=== PATIENT | male | born 1960 | race Caucasian/White ===

== ENCOUNTER 2020-04-20 07:30 | Outpatient (RCR) | payer OTHER, SELFPAY ==
[2020-02-29 12:31] VITALS: BP_SYST 160; BP_SYST 175
--- NOTE | 2020-02-29 13:41 | PTOPEVAL ---
Thank you for referring Ron Graff to [facility].? The patient is scheduled to be seen for therapy? 2 x/week for 8 weeks. Please review, sign, date and return this plan of care VERONICA. I agree with and certify that the following plan of care is medically necessary. Referring Physician Date Referring Provider: Gómez Owens *PT Outpatient Evaluation Start: 02/29/20 12:31 Freq: Status: Active Protocol: Document 02/29/20 12:31 LEROY (Rec: 02/29/20 13:26 CAP [id number]) Therapy Assessment Status Assessment Status Assessment Status Evaluation Outpatient Past Medical History Past Medical History Source of Past Medical History Patient Neurological History Hx Neurological Disorders No Significant History Cardiovascular History Hx Cardiac Disorders No Significant History Respiratory History Hx Respiratory Disorders No Significant History Gastrointestinal History Hx Gastrointestinal Disorders No Significant History Genitourinary History Hx Genitourinary Disorders No Significant History Musculoskeletal History Hx Fractures Yes: right wrist- 11 yrs, left wrist yrs 9 yrs ago Hx Other Musculoskeletal Disorders Yes: bob shoulder pain Endocrine History Hx Endocrine Disorders No Significant History HEENT History Hx Other HEENT Disorders Yes: hearing aids Evaluation Information Problem Diagnosis bob shoulder pain Onset unknown Cause 3 months ago Additional Evaluation Detail 10 yrs broke right wrist 10 yrs ago therapy for right UE. Subjective Information Reports the right shoulder has Query Text:As Reported By Patient/ been ache for the past few Family months. States his left arm is now also painful He is limited with reaching motions. Any activity that requires reaching is painful and difficulty. He has trouble sleeping due to pain. He is unable to marck sleeping on his back. he reports increased pain with leaning forward with WB on his arms. He does not work, performs work on his house. He did go to the gym 1 yr ago for resistance training. Diagnostic Tests X-Rays For This Problem No Previous Treatments Previous Treatments For This Problem no Pain Assessment Timing of Pain Assessment Timing of Pain Assessment As
--- NOTE | 2020-03-30 11:33 | PTOPEVAL ---
Thank you for referring Ron Graff to [facility].? Pt has received 9 therapy visits to address his shoulder limitations. The patient is scheduled to be seen for therapy? 2 x/week for 3 weeks. Please review, sign, date and return this plan of care VERONICA. I agree with and certify that the following plan of care is medically necessary. Referring Physician Date Referring Provider: Gómez Owens *PT Outpatient Evaluation Start: 02/29/20 12:31 Freq: Status: Active Protocol: Document 03/30/20 09:02 LEROY (Rec: 03/30/20 09:50 LEROY [id number]) Therapy Assessment Status Assessment Status Assessment Status Re-evaluation Evaluation Information Problem Diagnosis bob shoulder pain Onset unknown Cause 3 months ago Additional Evaluation Detail 10 yrs broke right wrist 10 yrs ago therapy for right UE. Reports the right shoulder has been ache for the past few months. States his left arm is now also painful. Subjective Information He cont to report pain in his Query Text:As Reported By Patient/ shoulders with sidelying Family sleeping. He is trying to sleep on his back with slight improvement. He continues to have limited ability to perform reaching motions. Reaching behind and overhead are painful. he has pain leaning forward on his elbows or hands causing shoulder pain. Pain Assessment Timing of Pain Assessment Timing of Pain Assessment Re-assessment Pain Scale Pain Scale Used Numeric (1 - 10) Self Report Pain Assessment Left Shoulder(s) Reported Pain Level 2 Pain Description Aching,Dull,Sharp Pain Frequency Chronic,Continuous Lowest Pain Intensity 2 Greatest Pain Intensity 6 Pain Aggravating Factors Other Pain Aggravating Factors Other Pain Aggravating Factors reaching Right Shoulder(s) Reported Pain Level 1 Pain Description Aching,Dull Pain Frequency Acute,Continuous Lowest Pain Intensity 1 Greatest Pain Intensity 5 Pain Aggravating Factors Other Pain Aggravating Factors Other Pain Aggravating Factors reaching Pain Score Pain Score 2,1: Self Report Interventions Used Interventions Used By Clinicians Exercise Upper Extremity Range of Mo
--- NOTE | 2020-04-20 08:15 | PTOPEVAL ---
Thank you for referring Ron Graff to [facility].? Pt has received 15 therapy visits to address shoulder impairments. He has been instructed in a HEP at this time. He has partially achieved his therapy goals. He has reached maximal potential with skilled therapy services. SO skilled therapy with pt to continue with his home program. Please review, sign, date and return this discharge VERONICA. I agree with and certify that the following plan of care is medically necessary. Referring Physician Date Referring Provider: Gómez Owens Physical Therapy Discharge Note Problem Diagnosis bob shoulder pain Onset unknown Cause 3 months ago Additional Evaluation Detail 10 yrs broke right wrist 10 yrs ago therapy for right UE. Reports the right shoulder has been ache for the past few months. States his left arm is now also painful. Subjective Information He reports the ache in his Query Text:As Reported By Patient/ shoulders has improved. He is Family able to sleep better on each side with decreased pain. He does feel like he is better. His right shoulder has improved more than the left side. He is performing his HEP without problems. He is taking a hot bath/shower for his shoulder pain. Pain Assessment Left Shoulder(s) Reported Pain Level 0 Pain Description Aching Pain Frequency Intermittent Lowest Pain Intensity 0 Greatest Pain Intensity 2 Pain Aggravating Factors Exercise/Activity Right Shoulder(s) Reported Pain Level 0 Pain Description Aching Pain Frequency Intermittent Lowest Pain Intensity 0 Greatest Pain Intensity 1 Upper Extremity Range of Motion Right Scapular: Retraction Hypomobile Scapular: Protraction Hypomobile Scapular Downward Rotation Hypomobile Shoulder Flexion - Active 165 Shoulder Extension - Active 50 Shoulder Abduction - Active 160 Shoulder Medial Rotation - Active 73 Shoulder Medial Rotation - Active T8 Query Text:Reach Behind the Back Shoulder Lateral Rotation - Active 65 Shoulder Lateral Rotation - Active C7 Query Text:Reach Behind the Head Scapular/Shoulder Range of Motion Pain Limitations Scapular/Shoulder Range of Motion poor inf Gh glide and Comments scapulothora
== END 2020-04-20 14:24 | disposition home or self-care (01) ==
LOC: ANHPT 07:30
DX: M25.519 Pain in unspecified shoulder (principal)
CPT/HCPCS: 97035; 97110; 97112; 97140; 97162

== ENCOUNTER 2020-06-24 17:38 | Emergency (ER) | payer OTHER, SELFPAY ==
--- NOTE | ~2020-06-24 | XR_ITS ---
XR finger 1st LT min 2V 06/24/2020 18:20 INDICATION: Left first finger pain PROCEDURE: 3 views left first finger COMPARISON: No prior studies for comparison. FINDINGS: Fracture, dislocation or subluxation is not identified. 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 The soft tissues appear within normal limits. No foreign bodies are identified. IMPRESSION: 1: NO ACUTE BONE OR JOINT ABNORMALITY IDENTIFIED. Reviewed, dictated and finalized at location A.
[2020-06-24 17:44] VITALS: BP 125/64; PULSE 61; RESP 15; TEMP 36.2; O2SAT 100
[2020-06-24] MEDS: TETANUS,DIPHTHERIA,AC PERTUSSIS ADULT (0.5 ML) BOOSTRIX IM (18:46)
--- NOTE | 2020-06-24 18:49 | ED.WOUNDLAC ---
HPI - Wound/Laceration General Chief Complaint: Wound/Laceration Stated Complaint: Cut Finger Nail Off Time Seen by Provider: 06/24/20 17:48 History of Present Illness HPI narrative: Patient is a 59-year-old male who presents ER with left thumbnail injury. Patient was working with drywall when he cut himself with a utility knife. No numbness or tingling. He did have a lot of bleeding. He has dressed it and bandages. No missing skin reported by patient. She maintains full range of motion of the finger. Unknown last tetanus immunization. Related Data Home Medications Medication Instructions Recorded Confirmed trazodone 06/24/20 Allergies Allergy/AdvReac Type Severity Reaction Status Date / Time No Known Allergies Allergy Verified 06/24/20 18:38 Review of Systems Musculoskeletal: Musculoskeletal: Reports no additional musculoskeletal complaints, Denies arthralgias, Denies joint swelling and Denies muscle cramps Integumentary/Breasts: Skin/Breast: Reports system reviewed and no additional complaints, except as docu Comments: Laceration left thumb and nail. Neurologic: Denies focal weakness and Denies numbness PMFSH Past Medical History Medical History (Updated 06/24/20 @ 18:54 by Roger Murillo MD) Healthy adult male Surgical History Surgical History (Updated 06/24/20 @ 18:51 by Roger Murillo MD) No pertinent past surgical history Exam Narrative: Exam Narrative: GENERAL: Well-appearing, well-nourished, and in no acute distress. HEAD: Normocephalic, atraumatic. EXTREMITIES: Focused exam left hand reveals a small laceration through the ulnar aspect of the distal thumb at the nail. Range of motion of the affected digit with normal sensation. Normal radial pulses and brisk capillary refill. SKIN: Warm, dry, no rash. NEURO: No focal deficits. Alert and oriented x3. PSYCH: Mildly anxious, normal thought content. Course Course Emergency Course: Wound cleaned and dressed and placed in AlumaFoam splint for protection. No need to suture. No bony involvement. Tetanus updated. Vital Signs Vital signs: Vital Signs Temperature 97.1 F L 06/24/20 17:44 Pulse Rate 61 06/24/20 17:44 Respiratory Rate 15 06/24/20 17:44 Blood Pressure 125/64 04/24/21 17:44 Pulse Oximetry 100 04/24/21 17:44 Temperature 97.1 F L 06/24/20 17:44 Pulse Rate 61 06/24/20 17:44 Respiratory Rate 15 06/24/20 17:44 Blood Pressure 125/64 06/24/20 17:44 Pulse Oximetry 100 06/24/20 17:44 MDM - Wound/Laceration Imaging Data Radiologist's impression: ITS Impressions Finger X-Ray 06/24/20 18:21 IMPRESSION: 1: NO ACUTE BONE OR JOINT ABNORMALITY IDENTIFIED. Discharge Plan Discharge Clinical Impression: Laceration of thumb with damage to nail Patient Disposition: Home, Self-Care Condition: Stable Instructions: Finger Laceration (ED) Additional Instructions: Your wound should heal well. Your tetanus shot was updated. Return to the ER if your finger is red and hot and swollen, you have pus draining from your wound, you have fever over 100.4 ?F, or you have other concerns. Take Tylenol and ibuprofen as needed for pain. Prescriptions: No Action trazodone 50 mg tablet RF: 0 Follow-up/Referrals: Vitaliy Cooper MD [Primary Care Provider] - 1 Week
[2020-06-24 19:03] VITALS: BP 131/59; PULSE 66; RESP 16; TEMP 36.8; O2SAT 98
== END 2020-06-24 19:03 | disposition home or self-care (01) ==
PROVIDERS: Emergency Provider Emergency Medicine; PCP Emergency Medicine
DX: S61.112A Laceration without foreign body of left thumb with damage to nail, initial encounter (principal); Z23 Encounter for immunization; W27.0XXA Contact with workbench tool, initial encounter
CPT/HCPCS: 29130; 73140; 90471; 90715; 99283

== ENCOUNTER 2020-10-09 10:48 | Day surgery (SDC) | payer OTHER, SELFPAY ==
[2020-10-09] VITALS (11 sets, daily range): BP systolic 119–147; BP diastolic 68–87; PULSE 63–85; RESP 10–18; TEMP 28.8–37.2; O2SAT 96–100
--- NOTE | ~2020-10-09 | CT_ITS ---
EXAMINATION: CT abdomen pelvis w con INDICATION: Right lower quadrant pain TECHNIQUE: Computed tomographic images of the abdomen and pelvis were obtained after the administrati on of 100 cc of Omnipaque 350 intravenous contrast. The dose-length product (DLP) was 360.67 mGy-cm. Automated exposure control and iterative reconstruction technique were employed. COMPARISON: None available FINDINGS: The lung bases are clear. The heart size is normal. The liver, spleen, pancreas, gallbladde r, and adrenal glands are normal. The kidneys are unremarkable. No pathologically enlarged abdominal or pelvic lymph nodes are identified. There is no free intraperitoneal gas or evidence of bowel obstr uction. The dilated appendix measures up to 10 mm. There is edematous stranding of the periappendicea l fat. No periappendiceal abscess or perforation are identified. There is mild lumbar spondylosis. A small fat-containing umbilical hernia is noted. IMPRESSION: 1. Acute appendicitis, uncomplicated. This finding was discussed with Dr. Roger Murillo MD at 12 50 hours on 10/09/2020. Reviewed, dictated and finalized at location B. IMPRESSION: 1. Acute appendicitis, uncomplicated. This finding was discussed with Dr. Kaushik Murillo MD at 1250 hours on 10/09/2020.
[2020-10-09 11:49] LABS: Basophils Absolute Auto 0.1 K/mm3 (0.0-0.1); Basophils Percent Auto 0.5 % (0.2-1.2); Eosinophils Absolute Auto 0.1 K/mm3 (0-0.3); Eosinophils Percent Auto 0.7 % (0-4.4); Hematocrit 40.2 % (42.0-52.0); Hemoglobin 13.1 g/dL (14.0-18.0); Immature Granulocyte Absolute 0.04 K/mm3 (0.00-0.031); Immature Granulocyte Percent A 0.3 % (0-0.5); Lymphocytes Absolute Auto 1.91 K/mm3 (0.9-3.2); Lymphocytes Percent Auto 14.9 % (18.3-44.2); Mean Corpuscular HGB Conc 32.6 g/dl (32-36); Mean Corpuscular Hemoglobin 29.4 pg (26-34); Mean Corpuscular Volume 90.3 fl (80-100); Mean Platelet Volume 10.2 fl (7.4-10.4); Monocytes Absolute Auto 0.7 K/mm3 (0.1-0.6); Monocytes Percent Auto 5.8 % (2.6-8.5); Neutrophils Absolute Auto 9.9 K/mm3 (1.3-6.7); Neutrophils Percent Auto 77.8 % (45.5-73.1); Platelet Count Result 266 k/mm3 (150-375); Red Blood Count 4.45 M/mm3 (4.6-6.20); Red Cell Distribution Width 12.4 % (11.5-14.5); White Blood Count 12.8 K/mm3 (4.5-10.0)
[2020-10-09 12:00] LABS: Alanine Aminotransferase 18 U/L (4-50); Albumin Level 4.8 g/dL (3.5-5.1); Alkaline Phosphatase 56 U/L (38-126); Anion Gap 10 mmol/L (8-16); Aspartate Amino Transferase 28 U/L (17-59); Blood Urea Nitrogen 11 mg/dL (9-20); Calcium 10.1 mg/dL (8.4-10.2); Carbon Dioxide 25 mmol/L (22-30); Chloride 104 mmol/L (98-107); Estimated CRCL calculation 97 ml/min; Estimated Glomerular Filt Rate > 60; Glucose 130 mg/dL (65-110); Lipase 60 U/L (23-300); Potassium 4.2 mmol/L (3.4-5.0); Sodium 139 mmol/L (137-145)
[2020-10-09 12:00] LABS: Add Urine Microscopic? YES; Appearance Urine Clear (Clear); Bacteria Urine Trace /hpf; Bilirubin Urine Negative (Negative); Blood Urine 1+ (Negative); Color Urine Yellow (Yellow); Glucose Urine UA Negative (Negative); Ketones Urine Negative (Negative); Leukocyte Esterase Ur Negative LEU/UL (Negative); Mucus Urine Heavy /lpf; Nitrate Urine Negative (Negative); Protein Urine 1+ mg/dL (Negative); Specific Grav Ur 1.017 (1.001-1.035); Urobilinogen Urine Negative mg/dL (<2.0); WBC Urine 0-3 /hpf
[2020-10-09] MEDS: MORPHINE SULFATE (*CRX) 4 MG/ML INJ IV PUSH (12:02)
--- NOTE | 2020-10-09 13:21 | ED.ABDPAIN ---
HPI - Abdominal Pain General Chief Complaint: Abdominal Pain Stated Complaint: abd pain Time Seen by Provider: 10/09/20 11:47 History of Present Illness HPI narrative: Patient is a 59-year-old male who presents ER with right lower quadrant abdominal pain. Reports yesterday he had periumbilical pain. It is since radiated to his right lower quadrant. Its worse with movement. No diarrhea/nausea/vomiting/fever/chills. No alleviating factors. Related Data Home Medications Medication Instructions Recorded Confirmed trazodone 50 mg PO HS 06/24/20 10/09/20 Allergies Allergy/AdvReac Type Severity Reaction Status Date / Time No Known Allergies Allergy Verified 10/09/20 15:36 Review of Systems Review of Systems: All systems reviewed & are unremarkable except as noted in HPI and below Constitutional: Constitutional: Denies chills, Denies fever(s) and Denies weakness ENT: Denies nasal congestion and Denies sore throat Gastrointestinal: Gastrointestinal: Reports abdominal pain, Denies diarrhea, Denies nausea and Denies vomiting Genitourinary: Genitourinary: Denies dysuria, Denies testicular pain and Denies urinary frequency PMFSH Past Medical History Medical History Anxiety Healthy adult male Surgical History Surgical History History of surgery on right wrist Family History Family History Mother Diabetes mellitus Sibling Diabetes mellitus Social History Social History Social History: Patient lies at home with his . He wishes to be a full code. 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 HEAD: Normocephalic, atraumatic. ENT: Mucous membranes moist. CHEST: Clear to auscultation. No respiratory distress. HEART: Regular rate and rhythm. Normal peripheral pulses. ABDOMEN: Soft, tender palpation right lower quadrant with guarding, nondistended. EXTREMITIES: Normal range of motion. No edema. SKIN: Warm, dry, no rash. NEURO: Alert and oriented x3. PSYCH: Normal mood and affect. Course Course Emergency Course: Zosyn ordered. Dr. Fitzgerald contacted, will send his PA down to evaluated patient. Vital Signs Vital signs: Vital Signs Temperature 83.9 F L 10/09/20 11:25 Pulse Rate 85 10/09/20 11:25 Respiratory Rate 16 10/09/20 11:25 Blood Pressure 147/71 H 10/09/20 11:25 Pulse Oximetry 99 10/09/20 11:25 Temperature 98.9 F 10/09/20 15:00 Pulse Rate 63 10/09/20 15:00 Respiratory Rate 16 10/09/20 15:00 Blood Pressure 124/83 10/09/20 15:00 Pulse Oximetry 100 10/09/20 15:00 MDM - Abdominal Pain Lab Data Result diagrams: 10/09/20 11:34 10/09/20 11:34 Labs: Lab Results 10/09/20 10/09/20 10/09/20 Range/Units 11:34 11:34 11:46 WBC 12.8 H (4.5-10.0) K/mm3 RBC 4.45 L (4.6-6.20) M/mm3 Hgb 13.1 L (14.0-18.0) g/dL Hct 40.2 L (42.0-52.0) % MCV 90.3 (80-100) fl MCH 29.4 (26-34) pg MCHC 32.6 (32-36) g/dl RDW 12.4 (11.5-14.5) % Plt Count 266 (150-375) k/mm3 MPV 10.2 (7.4-10.4) fl Immature Gran % (Auto) 0.3 (0-0.5) % Neut % (Auto) 77.8 H (45.5-73.1) % Lymph % (Auto) 14.9 L (18.3-44.2) % [place] % (Auto) 5.8 (2.6-8.5) % Eos % (Auto) 0.7 (0-4.4) % Baso % (Auto) 0.5 (0.2-1.2) % Lymph # (Auto) 1.91 (0.9
--- NOTE | 2020-10-09 14:18 | PM.IMHP ---
H&P: HPI History of Present Illness Date/Time: 10/09/20 14:18 Chief Complaint: RLQ Abdominal pain Narrative: This is a 59-year-old male who is otherwise healthy, who presented to the ER with complaints of abdominal pain. He reports an onset of generalized abdominal pain 2 nights ago. Yesterday, this pain continued to worsen and localized to the RLQ. Reports chills last night, but no reported fever. With the persistent pain, he came to the ER for evaluation. CT scan of the abdomen and pelvis showed acute uncomplicated appendicitis. Labs revealed mild leukocytosis. Our service was contacted by the ED provider. The patient is now seen in the ER. He reports still having some mild RLQ abdominal pain, but this improved after IV Morphine. No other complaints at this time. No previous abdominal surgeries. Review of Systems Review of Systems: All systems reviewed & are unremarkable except as noted in HPI and below Constitutional: Constitutional: Reports as per HPI, Reports chills, Denies fatigue and Denies fever(s) ENT: Reports system reviewed and no additional complaints, except as documented and Reports Normal hearing present Cardiovascular: Cardiovascular: Reports no additional cardiovascular complaints, Denies chest pain and Denies leg edema Respiratory: Respiratory: Reports no additional respiratory complaints, Denies cough and Denies dyspnea Gastrointestinal: Gastrointestinal: Reports as per HPI, Reports no additional gastrointestinal complaints and Reports abdominal pain Genitourinary: Genitourinary: Denies hematuria and Denies dysuria Musculoskeletal: Musculoskeletal: Denies abnormal gait and Denies joint swelling Neurologic: Reports system reviewed and no additional complaints, except as documented, Denies focal weakness, Denies numbness and Denies tingling PMFSH Past Medical History Medical History Healthy adult male Surgical History Surgical History History of surgery on right wrist Family History Family History Mother Diabetes mellitus Sibling Diabetes mellitus Social History Social History Social History: Patient lies at home with his . He wishes to be a full code. 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 Gender identity (if verbalized by the patient): Male Sexual Orientation (if Verbalized by the Patient): Straight or Heterosexual Meds Home Medications and Allergies Home Medications Medication Instructions Recorded Confirmed Type trazodone 06/24/20 History Allergies Allergy/AdvReac Type Severity Reaction Status Date / Time No Known Allergies Allergy Verified 10/09/20 12:01 Vital Signs Vital Signs - 24 hr 10/09/20 11:25 10/09/20 11:59 10/09/20 13:59 Temperature 83.9 F L 98.1 F Pulse Rate 85 79 76 Respiratory Rate 16 18 18 Blood Pressure 147/71 H 133/86 119/76 Pulse Oximetry 99 100 99 Exam Const: General: no acute distress, alert and awake Nutritional Appearance: average body habitus Orientation/consciousness: patient oriented x3 HENMT: Head: normocephalic and atraumatic Ears: hearing grossly normal bilaterally Mouth: Yes moist mucous membranes Eyes: General: appearance normal, both eyes and all related structures Sclera: sclerae normal Pupils: Equal, round and reactive pupils present EOM: EOMs intact bilaterally Neck: Neck: normal visual inspection and full ROM Resp: Effort & Inspection: able to speak in complete sentences and no respiratory distress Auscultation: clear to auscultation bilaterally Cardio
--- NOTE | 2020-10-09 15:48 | WPDANESEPPF ---
Anes - Initial Pre Proc Eval Procedure: Operation Date: 10/09/20 15:30 Proposed Procedures p Laparoscopic Appendectomy - Titi Fitzgerald DO Date/Time: 10/09/20 15:48 Surgeon: Titi Fitzgerald DO Pre Op Diagnosis: abd pain Patient Data Age: 59 Gender: M Height: 1.85 m Weight: 83.9 kg Last Vital Signs Temp 37.2 C 10/09/20 15:00 Pulse 63 10/09/20 15:00 Resp 16 10/09/20 15:00 BP 124/83 10/09/20 15:00 Pulse Ox 100 10/09/20 15:00 Allergies Allergy/AdvReac Type Severity Reaction Status Date / Time No Known Allergies Allergy Verified 10/09/20 15:36 Home Medications Medication Instructions Recorded Confirmed Type trazodone 50 mg PO HS 06/24/20 10/09/20 History Laboratory Tests 10/09/20 10/09/20 10/09/20 11:34 11:34 11:46 WBC 12.8 K/mm3 H K/mm3 (4.5-10.0) RBC 4.45 M/mm3 L M/mm3 (4.6-6.20) Hgb 13.1 g/dL L g/dL (14.0-18.0) Hct 40.2 % L % (42.0-52.0) MCV 90.3 fl fl (80-100) MCH 29.4 pg pg (26-34) MCHC 32.6 g/dl g/dl (32-36) RDW 12.4 % % (11.5-14.5) Plt Count 266 k/mm3 k/mm3 (150-375) MPV 10.2 fl fl (7.4-10.4) Immature Gran % (Auto) 0.3 % % (0-0.5) Neut % (Auto) 77.8 % H % (45.5-73.1) Lymph % (Auto) 14.9 % L % (18.3-44.2) [place] % (Auto) 5.8 % % (2.6-8.5) Eos % (Auto) 0.7 % % (0-4.4) Baso % (Auto) 0.5 % % (0.2-1.2) Lymph # (Auto) 1.91 K/mm3 K/mm3 (0.9-3.2) [place] # (Auto) 0.7 K/mm3 H K/mm3 (0.1-0.6) Eos # (Auto) 0.1 K/mm3 K/mm3 (0-0.3) Baso # (Auto) 0.1 K/mm3 K/mm3 (0.0-0.1) Abs Immat Gran (auto) 0.04 K/mm3 H K/mm3 (0.00-0.031) Absolute Neuts (auto) 9.9 K/mm3 H K/mm3 (1.3-6.7) Absolute Nucleated RBC 0.0 K/mm3 K/mm3 (0.0-0.012) Nucleated RBC % 0.0 % % (0.0-0.2) Sodium 139 mmol/L mmol/L (137-145) Potassium 4.2 mmol/L mmol/L (3.4-5.0) Chloride 104 mmol/L mmol/L (98-107) Carbon Dioxide 25 mmol/L mmol/L (22-30) Anion Gap 10 mmol/L mmol/L (8-16) BUN 11 mg/dL mg/dL (9-20) Creatinine 0.80 mg/dL mg/dL (0.7-1.3) Estim Creat Clear Calc 97 ml/min ml/min Estimated GFR > 60 (59 - ) Glucose 130 mg/dL H mg/dL (65-110) Calcium 10.1 mg/dL mg/dL (8.4-10.2) Total Bilirubin 1.0 mg/dL mg/dL (0.2-1.3) AST 28 U/L U/L (17-59) ALT 18 U/L U/L (4-50) Alkaline Phosphatase 56 U/L U/L (38-126) Total Protein 8.0 g/dL g/dL (6.3-8.2) Albumin 4.8 g/dL g/dL (3.5-5.1) Lipase 60 U/L U/L (23-300) Urine Color Yellow (Yellow) Urine Appearance Clear (Clear) Urine pH 6.0 (5.0-9.0) Ur Specific Wink 1.017 (1.001-1.035) Urine Protein 1+ mg/dL H mg/dL (Negative) Urine Glucose (UA) Negative mg/dL mg/dL (Negative) Urine Ketones Negative mg/dL mg/dL (Negative) Ur Blood (Man) 1+ H (Negative) Urine Nitrate Negative (Negative) Urine Bilirubin Negative (Negative) Urine Urobilinogen Negative mg/dL mg/dL (<2.0) Leukocyte Esterase Rfl Negative FAITH/UL FAITH/UL (Negative) Urine RBC 3-5 /hpf H /hpf (0-2) Urine WBC 0-3 /hpf /hpf Urine Bacteria Trace /hpf /hpf Urine Mucus Heavy /lpf H /lpf Patient hx anesthesia problems: none Family hx anesthesia problems: none PMFSH Past Medical History Medical History Anxiety Healthy adult male Surgical History Surgical History History of surgery on right wrist Family History Family History (Revi
[2020-10-09] MEDS: LACTATED RINGERS 1,000 ML 30 ML IV CONT (15:55)
--- NOTE | 2020-10-09 16:14 | WPDHPUPDATE1 ---
History and Physical Update Update Date/Time: 10/09/20 16:14 History and Physical has been reviewed, including an updated exam of the patient. There are NO changes in the patient's condition. Risks, benefits, and alternatives have been discussed and questions answered. Patient agrees to proceed with procedure.
[2020-10-09] MEDS: BUPIVACAINE/EPINEPHRINE 0.5% 30 ML VIAL INFILTRATE (16:44)
--- NOTE | 2020-10-09 17:22 | W.PM.PROC2 ---
Procedure Note - Detailed Date of Procedure 10/09/20 Pre-op Diagnosis Acute appendicitis Post-op Diagnosis same Procedure Performed Laparoscopic appendectomy Surgeon Titi Fitzgerald, DO Anesthesia general and local (0.5% bupivacaine with epinephrine) Indications This is a 59 yo man who presented to the ED today with RLQ pain. He was found to have focal tenderness in the RLQ, elevated WBC, and CT evidence of acute uncomplicated appendicitis. Decision was made to proceed with laparoscopic appendectomy, possible open. Findings Laparoscopic appendectomy was performed. Appendix appeared acutely inflamed and dilated but no evidence of perforation or abscess. The base of the appendix and cecum appeared healthy and viable. The distal ileum appeared normal. The appendix was removed and sent to the lab for pathology. Description of Procedure Procedure as well as risks, benefits, and alternatives were explained to the patient. The patient agreed to proceed. Written consent was obtained and placed in chart prior to procedure. The patient was brought back to surgical suite. He was placed supine on operating table. Time-out was done to confirm the patient and procedure. The patient was then intubated by the Anesthesia Department. His abdomen was prepped and draped in sterile fashion using chlorhexidine prep. A 12 mm incision was made at the inferior portion of the umbilicus. Blunt dissection was carried out down to the linea alba. The linea alba was then incised using a 15 blade scalpel. Then bluntly entered into the peritoneal cavity. A 12 mm trocar was then inserted, and carbon dioxide insufflation was used to create a pneumoperitoneum. The camera was inserted and the abdomen was inspected. No immediate abnormalities were identified. The patient was then placed in slight Trendelenburg position and rotated to the left. A 5 mm incision was made in the suprapubic region in midline and a 5 mm trocar was inserted under direct visualization. A 5 mm incision was made in the left lower quadrant and a 5 mm trocar was inserted under direct visualization. The right lower quadrant was carefully inspected. The cecum was identified and then this was traced back to the appendix. The appendix was identified and grasped at the mesoappendix and lifted anteriorly. Careful blunt dissection was carried out at the base of the appendix through the mesoappendix using a [place] grasper. An Endo-PATRICA 45 mm blue load stapler was then advanced across the base of the appendix and clamped and fired. A white reload was then clamped across the mesoappendix and fired. This freed up our appendix completely. It was then placed in an EndoCatch bag and removed through the umbilical port. The staple lines were then inspected. Hemostasis appeared adequate and the staple lines appeared secure. The area was then irrigated with sterile saline. The pelvis was then carefully inspected and irrigated with sterile saline as well and the remainder of the abdomen was carefully inspected. The patient was then flattened out in bed. One final inspection was made around the abdominal cavity and no other abnormalities were seen. The ports were then removed under direct visualization. The camera was removed and the pneumoperitoneum was released. The fascia of the umbilical incision was reapproximated using an 0 Vicryl cjkane-jk-pjuny suture. 0.5% bupivacaine with epinephrine was infiltrated locally around each of the incisions. The skin of the incisions was then approximated using 4-0 Monocryl subcuticular suture and Exofin glue was applied on top. The patient was then awakened from anesthesia, extubated, and transferred to Recovery. Estimated Blood Loss -5.0 Pathology yes (Appendix) Complications No immediate complications Condition stable Disposition same day
[2020-10-09] MEDS: fentaNYL CITRATE INJ (*CRX) 100 MCG/2 ML VIAL 25 MCG IV PUSH ×2 (17:28→17:40)
== END 2020-10-09 18:30 | disposition home or self-care (01) ==
LOC: ANHED 14:06 → ANHSURGERY 14:20
PROVIDERS: Emergency Provider Emergency Medicine; PCP Emergency Medicine; Visit Provider Surgery
PROC: 0DTJ4ZZ Resection of Appendix, Percutaneous Endoscopic Approach (ICD-10-PCS; CPT 44970; principal; 2020-10-09 15:30)
DX: K35.30 Acute appendicitis with localized peritonitis, without perforation or gangrene (principal); F41.9 Anxiety disorder, unspecified; Z87.891 Personal history of nicotine dependence
CPT/HCPCS: 44970; 36415; 74177; 80053; 81001; 83690; 85025; 88304; J0330; J1100; J2250; J2270; J2405; J2543; J2704; J3010; J7030; J7120; Q9967

== ENCOUNTER 2022-12-12 08:30 | Emergency (ER) | payer OTHER, SELFPAY ==
--- NOTE | ~2022-12-12 | XR_ITS ---
EXAMINATION: XR femur RT min 2V DATE: 12/12/2022 09:50 INDICATION: Right thigh pain. TECHNIQUE: 2 views of right femur on 4 radiographs were obtained. COMPARISON: None. FINDINGS: Bone alignment is normal. No fracture. There is heterotopic ossification in the area of the quadriceps tendon. There is mild right knee and hip osteoarthritis. No right knee joint effusion. IMPRESSION: 1. Mild polyarticular osteoarthritis. 2. Heterotopic ossification of the quadriceps tendon suspicious for acute or chronic tendon tear. Reviewed, dictated and finalized at location A. IMPRESSION: 1. Mild polyarticular osteoarthritis. 2. Heterotopic ossification of the quadriceps tendon suspicious for acute or ch ronic tendon tear.
--- NOTE | ~2022-12-12 | XR_ITS ---
EXAMINATION: XR hip RT 2V w AP pelvis DATE: 12/12/2022 09:50 INDICATION: Right hip pain. Fall. TECHNIQUE: An anteroposterior view of the pelvis and 2 views of right hip were obtained. COMPARISON: None. FINDINGS: Bone alignment is normal. No fracture. There is mild osteoarthritis of the hips. There is m ild lumbar spondylosis. IMPRESSION: 1. Mild osteoarthritis of the hips. Reviewed, dictated and finalized at location A.
[2022-12-12 08:38] VITALS: BP 147/88; PULSE 55; RESP 18; O2SAT 100
[2022-12-12] MEDS: HYDROmorphone HCL INJ (*CRX) 1 MG/ML SYR 0.5 MG IV PUSH (09:30)
--- NOTE | 2022-12-12 09:54 | ED.GENADULT ---
[facility] - General Adult General Chief complaint: Extremity Injury, Lower Stated complaint: R LEG INJURY Time Seen by Provider: 12/12/22 09:19 Source: patient Mode of arrival: wheelchair Limitations: no limitations History of Present Illness HPI narrative: This is a 62-year-old male who presents to the ED with chief complaint of right lower extremity injury occurring this morning. Reports pain to the right hip and right thigh. Patient reports that he was walking down a slippery hill this occurred. Reports that the left leg slid behind him and he fell down onto the right leg. Reports immediate severe pain after this. Reports significant difficulty with ambulation but his was able to help him to the car to get here. Denies any numbness or weakness. Denies any further site of pain or injury. Related Data Home Medications Medication Instructions Recorded Confirmed trazodone 50 mg tablet 50 mg PO HS 06/24/20 10/20/20 Allergies Allergy/AdvReac Type Severity Reaction Status Date / Time oxycodone AdvReac Agitated Verified 12/12/22 08:44 Review of Systems Review of Systems: All systems as dictated in [facility] Past Medical History Medical History Anxiety Healthy adult male Surgical History Surgical History History of laparoscopic appendectomy 10/09/20 History of surgery on right wrist Family History Family History Mother Diabetes mellitus Sibling Diabetes mellitus Social History Social History Social History: Patient lives at home with his . He wishes to be a full code. 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 EYES: PERRLA and EOMI. ENT: Nares clear, no rhinorrhea or epistaxis. Mucous membranes moist. Oropharynx without tonsillar hypertrophy exudate or other lesions. NECK: Supple. No adenopathy or masses. CHEST: No respiratory distress. Clear to auscultation. No wheezes rales or rhonchi HEART: Regular rate and rhythm. No murmur heard. Normal peripheral pulses. ABDOMEN: Soft, nontender, nondistended, normal active bowel sounds. MSK: No deformities. Guarding the right hip. Significant pain with palpation and range of motion of the hip and knee but on the right. Neurovascular intact distally. Leg lengths equal. Compartments soft. SKIN: Warm, dry, no rash. No bruising. NEURO: Alert and oriented x3. No focal deficits. PSYCH: Normal mood and affect. Course Course Emergency Course: Reevaluation 1018: Patient is feeling improved after having Dilaudid. He is able to extend the knee, although it is painful for him. Vital Signs Vital signs: Vital Signs Pulse Rate 55 L 12/12/22 08:38 Respiratory Rate 18 12/12/22 08:38 Blood Pressure 147/88 H 12/12/22 08:38 Pulse Oximetry 100 12/12/22 08:38 Oxygen Delivery Room Air 12/12/22 08:38 Pulse Rate 55 L 12/12/22 12:00 Respiratory Rate 24 H 12/12/22 12:00 Blood Pressure 133/96 H 12/12/22 12:00 Pulse Oximetry 97 12/12/22 10:53 Oxygen Delivery Room Air 12/12/22 08:38 Medical Decision Making [facility] Narrative Medical decision making narrative: This is a 62-year-old male who presents to the ED with chief complaint of right thigh injury occurring just prior to arrival. Vitals are normal. Exam shows decreased range the femur x-ray does show heterotopic a quad tendon
[2022-12-12 10:02] LABS: Basophils Absolute Auto 0.1 K/mm3 (0.0-0.1); Basophils Percent Auto 0.8 % (0.2-1.2); Eosinophils Absolute Auto 0.5 K/mm3 (0-0.3); Eosinophils Percent Auto 4.2 % (0-4.4); Hematocrit 38.4 % (42.0-52.0); Hemoglobin 12.9 g/dL (14.0-18.0); Immature Granulocyte Absolute 0.03 K/mm3 (0.00-0.031); Immature Granulocyte Percent A 0.3 % (0-0.5); Lymphocytes Absolute Auto 4.48 K/mm3 (0.9-3.2); Lymphocytes Percent Auto 41.8 % (18.3-44.2); Mean Corpuscular HGB Conc 33.6 g/dl (32-36); Mean Corpuscular Hemoglobin 31.2 pg (26-34); Monocytes Absolute Auto 0.9 K/mm3 (0.1-0.6); Monocytes Percent Auto 8.3 % (2.6-8.5); Neutrophils Absolute Auto 4.8 K/mm3 (1.3-6.7); Neutrophils Percent Auto 44.6 % (45.5-73.1); Platelet Count Result 305 k/mm3 (150-375); Red Blood Count 4.13 M/mm3 (4.6-6.20); Red Cell Distribution Width 12.9 % (11.5-14.5); White Blood Count 10.7 K/mm3 (4.5-10.0)
[2022-12-12 10:14] LABS: Alanine Aminotransferase 27 U/L (6-50); Albumin Level 4.7 g/dL (3.5-5.1); Alkaline Phosphatase 54 U/L (38-126); Anion Gap 11 mmol/L (8-16); Aspartate Amino Transferase 32 U/L (17-59); Bilirubin,Total 0.6 mg/dL (0.2-1.3); Blood Urea Nitrogen 21 mg/dL (9-20); Calcium 9.5 mg/dL (8.4-10.2); Carbon Dioxide 23 mmol/L (22-30); Chloride 101 mmol/L (98-107); Estimated CRCL calculation 81 ml/min; Estimated Glomerular Filt Rate > 60; Glucose 163 mg/dL (65-110); Sodium 135 mmol/L (137-145)
[2022-12-12 10:53] VITALS: PULSE 40; RESP 11; O2SAT 97
[2022-12-12 11:00] VITALS: PULSE 46; RESP 16
[2022-12-12 11:01] VITALS: BP 133/96; PULSE 45; RESP 11
[2022-12-12 11:15] VITALS: PULSE 59; RESP 29
[2022-12-12 12:00] VITALS: BP 133/96; PULSE 55; RESP 24
== END 2022-12-12 12:00 | disposition home or self-care (01) ==
PROVIDERS: Emergency Provider Physician Assistant
DX: S76.101A Unspecified injury of right quadriceps muscle, fascia and tendon, initial encounter (principal); F41.9 Anxiety disorder, unspecified; Z87.891 Personal history of nicotine dependence; M16.0 Bilateral primary osteoarthritis of hip; W10.2XXA Fall (on)(from) incline, initial encounter
CPT/HCPCS: 36415; 73502; 73552; 80053; 85025; 96374; 99284; J1170

== ENCOUNTER 2022-12-18 13:33 | Outpatient (CLI) | payer OTHER, SELFPAY ==
--- NOTE | ~2022-12-18 | MR_ITS ---
MRI of the right knee Clinical history: Quadriceps injury Technique: Coronal proton density and proton density-weighted images, sagittal proton-density and T2 fat-sat images, and axial proton-density fat-saturated images were acquired. Findings: Anterior and posterior cruciate ligaments are intact. Medial collateral ligament and the la teral collateral ligament complex are intact. Popliteus tendon is intact. There is suspected horizontal tear of the anterior horn of the lateral meniscus. There is probable ob lique undersurface tear of the posterior horn of the medial meniscus. There is mild contemplation the medial lateral compartment. There is moderate to advanced chondral ma lacia over the lateral patellar facet. Femoral trochlear cartilage is well preserved. Bone marrow sig nals are unremarkable. There is high-grade partial tear of the distal quadriceps tendon, with some of the posterior most fib ers remaining intact. Tear involves 80-90% of the total tendon thickness. There is soft tissue edema at the site of the tear. Patellar tendon is somewhat contracted with a wavy morphology. Small joint e ffusion present. Minimal Wren's cyst. There is diffuse subcutaneous soft tissue edema about the knee . Impression: High-grade partial tear of the distal quadriceps tendon, as detailed above, involving approximately 8 0-90% of the total tendon thickness. Horizontal tear of the anterior horn lateral meniscus. Oblique undersurface tear of the posterior horn of the medial masses. 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 Small joint effusion with diffuse subcutaneous soft tissue edema. Reviewed, dictated and finalized at [facility]. Impression: High-grade partial tear of the distal quadriceps tendon, as detailed above, inv olving approximately 80-90% of the total tendon thickness. Horizontal tear of the anterior horn lateral meniscus. Oblique undersurface tear of the posterior horn of the medial masses. 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 Small joint effusion with diffuse subcutaneous soft tissue edema.
== END 2022-12-18 13:34 | disposition home or self-care (01) ==
PROVIDERS: Visit Provider Orthopaedic Surgery
DX: S83.281A Other tear of lateral meniscus, current injury, right knee, initial encounter (principal); X58.XXXA Exposure to other specified factors, initial encounter
CPT/HCPCS: 73721

== ENCOUNTER 2022-12-26 02:18 | Day surgery (SDC) | payer OTHER, SELFPAY ==
[2022-12-24 09:40] VITALS: BMI 24.4
--- NOTE | 2022-12-24 09:47 | PC.NURSE ---
Report to the Outpatient Waiting Room, entrance under the green pavilion located off [facility], at time 0830 on date 12/26/22. Planned Procedure Time: 1030. Time changes happen often and if your time is changed the preop area will call you the afternoon before. - You and your visitor will be asked to self-screen and do not enter if you have any COVID symptoms. - A mask is optional within the hospital at this time. Patients may have clear liquids (water, carbonated beverages, clear teas, apple juice) until 3 hours prior to surgery with a maximum of 20 ounces. - No food from midnight until time of surgery Take the following medications with a SIP of water the morning of surgery: NONE DO NOT STOP ANY OF YOUR OTHER PRESCRIPTION MEDICATIONS PRIOR TO SURGERY ?EXCEPT THE FOLLOWING Medications to discontinue per physician: N/A Date to take last dose: N/A Please no make-up, nail uruguayan, hairspray, perfume, deodorant, or body powder the day of surgery. No jewelry (including any body piercings) or valuables the day of surgery, leave them at home. Please take a shower or bath the night before, or the morning of, surgery with an antibacterial soap. Wear comfortable, loose fitting clothing. - Jewelry must be removed prior to entering the operating room. Rings and piercings that are not removed may be cut off. - The hospital will not accept responsibility for valuables. - Please leave all valuables, including medications, at home the day of surgery. If you are going home after surgery, a licensed pedicab driver must drive you home. - NO public transportation without another adult if you receive anesthesia. - We recommend that an adult stay with you for 24 hours following discharge. - We also recommend that you do not drive, make important decision, drink alcoholic beverages, or take any drugs that were not prescribed by your health care provider for at least 24 hours after your discharge time. Follow any additional instructions given to you from your surgeon. If you or anyone in your household have experienced Covid symptoms in the past week, please notify your surgeon or the nurse liaison at the phone number below for possible testing. Telephone instructions given to PT & and asked if any additional questions and then verbalized understanding. Patient advised to call surgeon office or pre surgery nurse liaison [phone] if any additional questions.
--- NOTE | 2022-12-25 13:44 | P.PNAN_ITS ---
Anes - Initial Pre Proc Eval Procedure: Operation Date: 12/26/22 10:30 Proposed Procedures p Right Quadriceps Tendon Repair - Gregory Black MD Date/Time: 12/25/22 13:44 Surgeon: Gregory Black MD Pre Op Diagnosis: right quadriceps tendon rupture Patient Data Age: 62 Gender: M Height: 1.85 m Weight: 83.9 kg Allergies Allergy/AdvReac Type Severity Reaction Status Date / Time oxycodone AdvReac Agitated Verified 12/24/22 09:38 Home Medications Medication Instructions Recorded Confirmed Type terbinafine HCl 250 mg tablet 250 mg PO QNOON 12/24/22 12/24/22 History Patient hx anesthesia problems: none Family hx anesthesia problems: none Results Review: All pre-operative results and documents have been reviewed as part of the pre- operative evaluation. [facility] Past Medical History Medical History (Updated 12/25/22 @ 13:44 by Vance Stephen DO) Anxiety Healthy adult male THUY (obstructive sleep apnea) rarely uses CPAP Surgical History Surgical History History of laparoscopic appendectomy 10/09/20 History of surgery on right wrist Family History Family History Mother Diabetes mellitus Sibling Diabetes mellitus Social History Social History Social History: Patient lives at home with his . He wishes to be a full code. Smoking packs per day: 0.5 Smoking cigarettes per day: 10.0 Years smoked: 20 Smoking pack-years: 10.00 Smoking status: Former smoker Tobacco type: cigarettes Smoking end date: 03/03/05 Alcohol intake: never Alcohol use details: Very rare use Substance use: never Substance use type: does not use Lack of Transportation: No Lack of Food: Never True Current Housing: I Have Housing Concerned About Future Housing: No Difficulty Paying Gas/Electric Bills: No Difficulty Paying for Meds: No Currently Unemployed: No Education: Associate Degree Difficulty w/ Childcare or Family Care: No Living arrangements: with family Occupation/Education: occupation 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 Gender identity (if verbalized by the patient): Male Sexual Orientation (if Verbalized by the Patient): Straight or Heterosexual Spiritual care concerns: No Anes - Eval Final PreProcedure Day of Procedure 12/25/22 13:44 Patient weight: normal Heart: regular rate and rhythm Lungs: clear to auscultation Airway: Mallampati scale class II Neurological: alert and oriented Last oral intake: >/= 8 hours ASA classification: II Emergent: no Anesthetic plan: proceed Anesthesia type and monitoring: general LMA and standard monitoring Results Review: All pre-operative results and documents have been reviewed as part of the pre- operative evaluation. Informed Consent: The patient's anesthetic plan and its attendant risks and benefits were d iscussed with the patient/family/POA. Questions were solicited and answers provided to the satisfaction of the patient/family/POA.
[2022-12-26] VITALS (11 sets, daily range): BP systolic 132–163; BP diastolic 76–93; PULSE 48–66; RESP 12–16; TEMP 36.4–36.7; O2SAT 95–100
--- NOTE | 2022-12-26 06:51 | WPDHPUPDATE1 ---
History and Physical Update Update Date/Time: 12/26/22 06:51 Quadriceps rupture confirmed on MRI. Proceed with right quadriceps tendon repair. We discussed the risks, benefits, and alternatives to surgery. History and Physical has been reviewed, including an updated exam of the patient. There are NO changes in the patient's condition. Risks, benefits, and alternatives have been discussed and questions answered. Patient agrees to proceed with procedure.
[2022-12-26] MEDS: KETOROLAC 15 MG/ML VIAL (*BKC) IV PUSH (10:15)
[2022-12-26] MEDS: ACETAMINOPHEN 500 MG TABLET 1000 MG PO (10:15)
[2022-12-26] MEDS: ceFAZolin 2 GM/D5W 50 ML 2 GM/50 ML BAG IVPB (10:49)
[2022-12-26] MEDS: BUPIVACAINE/EPINEPHRINE 0.5% 10 ML VIAL 20 ML INFILTRATE (11:21)
[2022-12-26] MEDS: LACTATED RINGERS 1,000 ML 30 ML IV CONT ×2 (13:05)
--- NOTE | 2022-12-26 13:11 | W.PM.PROC2 ---
Procedure Note - Detailed Date of Procedure 12/26/22 Pre-op Diagnosis right quadriceps tendon rupture Post-op Diagnosis Same Procedure Performed Repair right quadriceps tendon. Surgeon Gregory Black MD Anesthesia General Findings Complete rupture of central tendon. Description of Procedure Preoperative antibiotics were given. The knee was prepped and draped in usual sterile fashion. Longitude incision was created over the center of the knee. The quadriceps tendon disruption was exposed. The central slip of the tendon was completely ruptured and retracted. The vastus medialis was mostly intact as was the vastus lateralis and vastus intermedius. The bone was ideal for suture anchor repair. Two fiber wire tape sutures were woven with a Krackow fashion into the rectus femorals tendon. These were inserted into a SwiveLock anchor. Patella was drilled at the appropriate location and tapped. The SwiveLock anchor was entered and the sutures tensioned to reduce the quadriceps tendon anatomically. The repair was reinforced with will then suture into the vastus medialis and into the vastus lateralis. The more superficial defect of tendinous tissue was oversewn over the top of the primary repair. The repair was quite schmidt. Tension was observed at approximately 60? of flexion. The knee was copiously irrigated and closed in layers with #1 Vicryl suture followed by 2-0 Stratafix and 3-0 Stratafix. Steri-Strips and a sterile dressing placed on the skin with a compressive wrap. Knee immobilizer placed. The patient was extubated and brought to the recovery room in stable condition. There were no complications. Implants Arthrex SwiveLock suture anchors x2. Multiple FiberWire sutures. Estimated Blood Loss 10 Tourniquet Time 60 Complications No immediate complications Condition Stable Disposition PACU [facility] Billing Surgery - Charge Forward: Surgery Billing
[2022-12-26] MEDS: fentaNYL CITRATE INJ (*CRX) 100 MCG/2 ML VIAL 25 MCG IV PUSH ×8 (13:16→13:49)
[2022-12-26] MEDS: HYDROmorphone HCL INJ (*CRX) 1 MG/ML SYR 0.5 MG IV PUSH ×2 (14:09→14:14)
[2022-12-26] MEDS: HYDROcodone/acetaminophen (*CRX) 5-325 MG TABLET 1 TAB PO (15:07)
--- NOTE | 2022-12-26 16:08 | SUR.PHASEII ---
1550: RN called and left a message for Dr. Black requesting if he could send a prescription for 800mg ibuprofen to pharmacy per family request.
== END 2022-12-26 15:53 | disposition home or self-care (01) ==
PROVIDERS: Visit Provider Orthopaedic Surgery
PROC: (CPT 27385; principal; 2022-12-26 10:30)
DX: S76.111A Strain of right quadriceps muscle, fascia and tendon, initial encounter (principal); X50.0XXA Overexertion from strenuous movement or load, initial encounter; Z87.891 Personal history of nicotine dependence
CPT/HCPCS: 27385; A9270; J0690; J1100; J1170; J1885; J2250; J2405; J2704; J3010; J7120; L1830

== ENCOUNTER 2023-04-07 14:15 | Outpatient (RCR) | payer OTHER, SELFPAY ==
--- NOTE | 2023-01-30 09:58 | PTOPEVAL1 ---
Assessment and note entered by Duglas Olivo, PT Evaluation Information Assessment Status Evaluation Diagnosis Right Quadriceps tendon repair, Knee pain, altered gait Onset 12/26/22 Subjective Information Reports that he slipped on wet grass and buckled his knee causing initial injury. Reports that he has been taking his brace off a little at home. No pain at rest but feels very stiff when walking. If he tries to bend is knee he feels knee pain. He is having a lot of difficulty with stairs and has to step to when walking. He is very active and has been working out upper body even after injury. Reported Pain Level Pain Score 2: Self Report Assessment PT Clinical Summary Mr. Graff presents with lack of functional knee ROM, swelling, and gross R LE weakness following R quad distal quad repair. Patient presents with excellent superficial healing 5 weeks out of surgery. 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 Plan of Care Interventions Electrical Stimulation,Hot Pack/Cold Pack, Intermittent Compression,Manual Therapy,Neuro Re- education,Therapeutic Activities,Therapeutic Exercise PT Services Indicated Yes Treatment Frequency and 2x/week for 6 weeks Duration These treatments will address the objective and functional deficits as defined above. The patient will be advanced safely and appropriately in order for the patient to progress towards his/her prior level of function. Additional exercises will be introduced and as well as a comprehensive home exercise program upon discharge, if needed, ?to ensure carryover of functional gains achieved in the clinic. This treatment plan has been reviewed and agreement upon by the patient.
--- NOTE | 2023-01-30 09:58 | OPREHPOC ---
Outpatient Therapy Plan of Care This is a Multidisciplinary Plan of Care that may contain components documented by all disciplines (PT, OT, and ST.) PT Problem 1 PT Problem #1 Knowledge Deficit PT Goal 1 Goal Cowley with HEP Target Visit 4 PT Problem 2 PT Problem #2 Pain PT Goal 1 Goal Patient will report no pain with open arc quad contraction facilitating improved muscle tone Target Visit 8 PT Problem 3 PT Problem #3 Edema PT Goal 1 Goal Demonstrate 2+cm reduction in knee edema indicating soft tissue healing PT Problem 4 PT Problem #4 Impaired Range of Motion PT Goal 1 Goal Improve R knee flexion AROM to 130 degrees to restore functional squatting ability Target Visit 12 PT Goal 2 Goal Achieve R knee terminal extension to improve terminal gait cycle and gait mechanics Target Visit 12 PT Problem 5 PT Problem #5 Impaired Strength PT Goal 1 Goal Improve R knee extension strength to 5/5 to promote functional stability with walking, transfers, and dynamic activity Target Visit 12 PT Goal 2 Goal Demonstrate ability to maintain single leg stance for 30 seconds on dynamic surface to improve functional proprioception activity. Target Visit 12
--- NOTE | 2023-02-27 10:02 | PTOPPROG ---
Assessment and note entered by Duglas Olivo, PT Evaluation Information Assessment Status Progress Diagnosis Right Quadriceps tendon repair, Knee pain, altered gait Onset 12/26/22 Subjective Information Reports that he is still struggling with leg clearance into and out of bed and out of car. Feels that he has good enough control to be out of brac e but will occasionally feel that he cannot trust full weight on knee, especially at the end of the day. Overall feels that he is considerably better and has no pin with ROM activity at this time. Assessment PT Clinical Summary Patient making excellent progress 2 months post operative. Still showing some lingering patellar edema which can help account for leverage weakness and discomfort tin knee. Hip strength and knee functional ROM considerably improved at this time but still showing room for improvement. Mr. Graff will continue to benefit from skilled therapy to address deficits and restore full functional knee stability, gait, and ADL performance. Plan of Care Interventions Electrical Stimulation,Hot Pack/Cold Pack, Intermittent Compression,Manual Therapy,Neuro Re- education,Therapeutic Activities,Therapeutic Exercise PT Services Indicated Yes Treatment Frequency and 2x/week for 5 visits continuation of current POC. Duration These treatments will address the objective and functional deficits as defined above. The patient will be advanced safely and appropriately in order for the patient to progress towards his/her prior level of function. Additional exercises will be introduced and as well as a comprehensive home exercise program upon discharge, if needed, ?to ensure carryover of functional gains achieved in the clinic. This treatment plan has been reviewed and agreement upon by the patient.
--- NOTE | 2023-02-27 10:03 | OPREHPOC ---
Outpatient Therapy Plan of Care This is a Multidisciplinary Plan of Care that may contain components documented by all disciplines (PT, OT, and ST.) PT Problem 1 PT Problem #1 Knowledge Deficit PT Goal 1 Goal [place] with HEP Target Visit 4 Progress Met PT Problem 2 PT Problem #2 Pain PT Goal 1 Goal Patient will report no pain with open arc quad contraction facilitating improved muscle tone Target Visit 8 Progress Partially Met Comment Improved but still reporting pain with foot clearence into and out of bed PT Problem 3 PT Problem #3 Edema PT Goal 1 Goal Demonstrate 2+cm reduction in knee edema indicating soft tissue healing Target Visit 14 Progress Partially Met Comment Greatly improved. Still lingering edema. PT Problem 4 PT Problem #4 Impaired Range of Motion PT Goal 1 Goal Improve R knee flexion AROM to 130 degrees to restore functional squatting ability Target Visit 14 Progress Partially Met Comment Improved to 125. PT Goal 2 Goal Achieve R knee terminal extension to improve terminal gait cycle and gait mechanics Target Visit 12 Progress Met PT Problem 5 PT Problem #5 Impaired Strength PT Goal 1 Goal Improve R knee extension strength to 5/5 to promote functional stability with walking, transfers, and dynamic activity Target Visit 14 Progress Partially Met Comment Greatly improved. Still limited by discomfort and weakness. Emphasized moving forward. PT Goal 2 Goal Demonstrate ability to maintain single leg stance for 30 seconds on dynamic surface to improve functional proprioception activity. Target Visit 14 Progress Partially Met Comment Capable of single leg stance but unable to maintin for time.
--- NOTE | 2023-03-17 08:26 | PCPTNOTE ---
Patient cancelled secondary to weather.
--- NOTE | 2023-03-20 10:17 | PTOPPROG ---
Assessment and note entered by Duglas Olivo, PT Evaluation Information Assessment Status Progress Diagnosis Right Quadriceps tendon repair, Knee pain, altered gait Onset 12/26/22 Subjective Information Reports that he is not having pain at all on a daily basis. He is still apprehensive on stairs. 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 He is still dealing with swelling that increases as the day goes on. Feels most of his trouble has been with lowering on stairs and lifting leg to prop it up. Overall e is happy where he is but still feels he has work to do. Assessment PT Clinical Summary We have seen considerable improvement in knee ROM and strength, but he continues to show some difficulty with open chain quad control. His gait pattern in much improved but he is still lacking full eccentric control on stairs. Bursitis still present in patellar bursa. Knee edema much improved. Will continue to monitor to assess eccentric progress towards improved ADLs. Plan of Care Interventions Electrical Stimulation,Hot Pack/Cold Pack, Intermittent Compression,Manual Therapy,Neuro Re- education,Therapeutic Activities,Therapeutic Exercise PT Services Indicated Yes Treatment Frequency and Continue per current POC 1x/week for 2 weeks Duration resuming 03/31/23. These treatments will address the objective and functional deficits as defined above. The patient will be advanced safely and appropriately in order for the patient to progress towards his/her prior level of function. Additional exercises will be introduced and as well as a comprehensive home exercise program upon discharge, if needed, ?to ensure carryover of functional gains achieved in the clinic. This treatment plan has been reviewed and agreement upon by the patient.
--- NOTE | 2023-03-20 10:17 | OPREHPOC ---
Outpatient Therapy Plan of Care This is a Multidisciplinary Plan of Care that may contain components documented by all disciplines (PT, OT, and ST.) PT Problem 1 PT Problem #1 Knowledge Deficit PT Goal 1 Goal [place] with HEP Target Visit 4 Progress Met PT Problem 2 PT Problem #2 Pain PT Goal 1 Goal Patient will report no pain with open arc quad contraction facilitating improved muscle tone Target Visit 8 Progress Partially Met Comment Improved but still reporting pain with foot clearance into and out of bed. Pain with muscle resistance during muscle testing. PT Goal 2 Goal Demonstrate ability to eccentrically descend stairs without handrail. Target Visit 14 Comment New Goal PT Problem 3 PT Problem #3 Edema PT Goal 1 Goal Demonstrate 2+cm reduction in knee edema indicating soft tissue healing Target Visit 14 Progress Met Comment Greatly improved. Still some bursitis noted. PT Problem 4 PT Problem #4 Impaired Range of Motion PT Goal 1 Goal Improve R knee flexion AROM to 130 degrees to restore functional squatting ability Target Visit 14 Progress Met Comment Improved to 134. PT Goal 2 Goal Achieve R knee terminal extension to improve terminal gait cycle and gait mechanics Target Visit 12 Progress Met PT Problem 5 PT Problem #5 Impaired Strength PT Goal 1 Goal Improve R knee extension strength to 5/5 to promote functional stability with walking, transfers, and dynamic activity Target Visit 14 Progress Partially Met Comment Greatly improved. Still limited by discomfort and weakness. Emphasized moving forward. Pain noted in open chain. PT Goal 2 Goal Demonstrate ability to maintain single leg stance for 30 seconds on
--- NOTE | 2023-04-07 15:49 | PTOPDC ---
Assessment and note entered by Duglas Olivo, PT Evaluation Information Assessment Status Discharge Diagnosis Right Quadriceps tendon repair, Knee pain, altered gait Onset 12/26/22 Subjective Information Reports that he has been consistent with home exercises and exercise involvement in [employer]. Continues to feel that he is better every day. States that occasionally he will have instances where he feels the knee is going to give out on him but they are less and less. 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 No pain at rest. Reported Pain Level Pain Score 0: Self Report Assessment PT Clinical Summary Patient has made excellent progress with therapy. Demonstrate full ROM and even stride length with gait. Does still present with occasional discomfort but has a good understanding of HEP moving forward to continue to improve functional quad strength and activity level for full fdc functional improvement. Plan of Care PT Services Indicated Yes
--- NOTE | 2023-04-07 15:49 | OPREHPOC ---
Outpatient Therapy Plan of Care This is a Multidisciplinary Plan of Care that may contain components documented by all disciplines (PT, OT, and ST.) PT Problem 1 PT Problem #1 Knowledge Deficit PT Goal 1 Goal [place] with HEP Target Visit 4 Progress Met PT Problem 2 PT Problem #2 Pain PT Goal 1 Goal Patient will report no pain with open arc quad contraction facilitating improved muscle tone Target Visit 8 Progress Met PT Goal 2 Goal Demonstrate ability to eccentrically descend stairs without handrail. Target Visit 14 Progress Met PT Problem 3 PT Problem #3 Edema PT Goal 1 Goal Demonstrate 2+cm reduction in knee edema indicating soft tissue healing Target Visit 14 Progress Met Comment Greatly improved. Still some bursitis noted. PT Problem 4 PT Problem #4 Impaired Range of Motion PT Goal 1 Goal Improve R knee flexion AROM to 130 degrees to restore functional squatting ability Target Visit 14 Progress Met Comment Improved to 134. PT Goal 2 Goal Achieve R knee terminal extension to improve terminal gait cycle and gait mechanics Target Visit 12 Progress Met PT Problem 5 PT Problem #5 Impaired Strength PT Goal 1 Goal Improve R knee extension strength to 5/5 to promote functional stability with walking, transfers, and dynamic activity Target Visit 14 Progress Partially Met Comment Greatly improved. Still limited by discomfort and weakness. Emphasized moving forward. Pain noted in open chain. PT Goal 2 Goal Demonstrate ability to maintain single leg stance for 30 seconds on dynamic surface to improve functional proprioception activity. Target Visit 14 Progress Met
== END 2023-04-08 10:39 | disposition home or self-care (01) ==
LOC: ANHPT 14:15
PROVIDERS: Visit Provider Orthopaedic Surgery
DX: Z48.89 Encounter for other specified surgical aftercare (principal); S76.111A Strain of right quadriceps muscle, fascia and tendon, initial encounter
CPT/HCPCS: 97016; 97110; 97112; 97116; 97140; 97161; 97530; 99199

== ENCOUNTER 2023-11-21 08:30 | Outpatient (RCR) | payer OTHER, SELFPAY ==
--- NOTE | 2023-11-06 09:06 | PTOPEVAL1 ---
Assessment and note entered by Nathan Anders Evaluation Information Assessment Status Evaluation Diagnosis right chondromalacia patella ICD-10 Condition Codes (PT) M25.561 Onset 11/06/23 Subjective Information Pt. reports that he has been experiencing knee pain on the right for about the past year. He reports that he tore his quad about 1 year ago and underwent surgery. He states that he is very active in the gym, but states that squats, stairs and navigating hills is still painful. He describes pain in the front of the knee. He states that the pain is not constant. He reports that he does multiple machines at the gym, but pain is worse after exercise. He states that he notices that he is not able to walk normally and going down steps the right leg is weak and painful . He reports that he wants to continue to go to the gym, however is fearful that he will hurt the knee. He states that his goal is to reduce knee pain with exercise. Reported Pain Level Pain Score 0: Self Report Assessment PT Clinical Summary Pt. is a 63 year old male who enters the clinic with right knee pain. Pt. is very motivated and remains active, but has had recent difficulty with conditioning due to pain. Note lack of stability and strength and the right hip compared to the left resulting in faulty biomechanics with gait and squatting activities. He currently presents with decreased flexibility, impaired proximal l.e. strength, impaired gait and pain. Continued skilled PT is indicated in order to improve these areas to allow the pt. to improve comfort and efficiency with IADL's. Plan of Care Interventions Electrical Stimulation,Gait Training,Hot Pack/Cold Pack,Manual Therapy,Neuro Re-education,Patient/ Caregiver Educati,Therapeutic Activities, Therapeutic Exercise PT Services Indicated Yes Treatment Frequency and 2x/week x 8 visits Duration These treatments will address the objective and functional deficits as defined above. The patient will be advanced safely and appropriately in order for the patient to progress towards his/her prior level of function. Additional exercises will be introduced and as well as a comprehensive home exercise program upon discharge, if needed, ?to ensure carryover of functional gains achieved in the clinic. This treatment plan has been reviewed and agreement upon by the patient.
--- NOTE | 2023-11-06 09:07 | OPREHPOC ---
Outpatient Therapy Plan of Care This is a Multidisciplinary Plan of Care that may contain components documented by all disciplines (PT, OT, and ST.) PT Problem 1 PT Problem #1 Knowledge Deficit PT Goal 1 Goal / Goal Update Pt. will be independent with a HEP addressing l.e. strength PT Problem 2 PT Problem #2 Impaired Strength PT Goal 1 Goal / Goal Update Pt. will be able to maintain right single limb stance for 1 minute without LOB or trendelenburg sign Pt. will descend steps for 20 reps with WB on right with improved mechanics without note hip IR deformity Pt. will present with 5/5 right hip abductor strength. Target Visit 8 PT Problem 3 PT Problem #3 Impaired Gait PT Goal 1 Goal / Goal Update Pt. will ambulate on the treadmill for duration of 10 minute without incidence of trendelenburg. Target Visit 8
--- NOTE | 2023-11-21 09:20 | PTOPDC ---
Assessment and note entered by Inna Galaviz, PT Discharge Report Assessment Status Discharge Diagnosis right chondromalacia patella ICD-10 Condition Codes (PT) M25.561 Onset 11/06/23 Subjective Information therapy has helped him but hip and knee do not feel stable when going doing the stairs; have been doing the gym exercises---6x/wk for 30-60 min for arm and leg strengthening; have stopped doing the knee straightening resisted exercises- hurt knee; have the exercises for home and using the band for resistance and the stretches; since my knee injury have not ran, do not feel like I could; is working and doing all work activities in construction; Reported Pain Level Pain Score Self Report Additional Pain Score Comments no pain in knee or hip; when descending stairs, with full weight on R LE, reported 3/10 in R knee have not needed to use ice or pain meds; Assessment PT Clinical Summary Vikram has received 4 PT sessions. 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 Education completed for HEP and progression of activity as tolerated, monitor pain and increase activity. The goals were partially achieved. Discharge PT. He is to continue with his HEP. Plan of Care PT Services Indicated No
== END 2023-11-21 16:28 | disposition home or self-care (01) ==
LOC: ANHPT 08:30
PROVIDERS: Visit Provider Orthopaedic Surgery
DX: M22.41 Chondromalacia patellae, right knee (principal); Z98.890 Other specified postprocedural states
CPT/HCPCS: 97110; 97112; 97161; 97530